=== PATIENT | female | born 1955 | race Caucasian/White ===

== ENCOUNTER 2016-09-05 08:54 | Day surgery (SDC) | payer OTHER ==
[2016-09-05] VITALS (12 sets, daily range): BP systolic 126–160; BP diastolic 57–82; PULSE 69–96; RESP 12–28; O2SAT 95–100
[~2016-09-05] VITALS: Ht 175.3 cm; Wt 99.3 kg
--- NOTE | 2016-09-05 06:45 | PCM.HPANE ---
Patient Data Surgeon Admitting Provider: Attending Provider:Ernie Jimenes DPM Primary Care Physician:Keith Mcgill MD Other Provider:Lesley Osorio Anesthesia Reason for Visit Posterior Tibial Tendon Dysfuncion Left Ankle Ht/WT & BMI Height (Feet): 5 Height (Inches): 9 Weight (Kilograms): 98.42 Body Mass Index 32.00 Allergies Coded Allergies: No Known Allergies (Unverified Allergy, Unknown, 05/11/16) Past Anesthesia History Anesthesia History: Denies:: Abnormal Airway, Anesthesia Reactions, Difficult Intubation, Fam Anesthesia Reaction, Fam Malignant Hypertherm, Malignant Hyperthermia Diabetes History Hx Diabetes?: No MRSA MRSA: No Medications Blood Thinner: Aspirin Hypertension Medication: No Home Meds Incl Beta Anthony: No Reported Medications Zinc Gluconate (Zinc)50 Mg [id number] Mg PO DAILY 09/02/16 Ascorbic Acid (Vitamin C)1,000 Mg Tab.chew1,000 Mg PO DAILY Ref 0 09/02/16 Calcium Carbonate/Vitamin D3 (Calcium 600 + Vit D Tablet)1 Each Tablet1 Each PO DAILY 09/02/16 Turmeric Root Extract (Turmeric)500 Mg Capsule1,000 Mg PO DAILY 09/02/16 Cholecalciferol (Vitamin D3) (Vitamin D3)2,000 Unit Tablet2,000 Unit PO DAILY 09/02/16 Fish Oil/Borage/Flax/Om3,6,9#1 (Triple Carmi Complex 3-6-9)400 Mg [id number] Mg PO DAILY 09/02/16 Cyanocobalamin (Vitamin B12)500 Mcg Tablet1,000 Mcg PO DAILY 09/02/16 Magnesium Oxide 400 Mg [id number] Mg PO DAILY 09/02/16 Vitamin E Mixed (Vitamin E)400 Unit [id number] Unit PO DAILY 09/02/16 Aspirin 81 Mg [id number] Mg PO DAILY Ref 0 09/02/16 Discontinued Reported Medications No Historical Medication Ea 07/21/13 History History of ENT Problems?: No HEENT History: Denies:: Abnormal Airway Cataracts Difficult Intubation Dysphagia Glaucoma Hearing Problem Sinus Problem TMJ Hx of Heart Problems?: No Cardiovascular History: Denies:: AICD Congestive Heart Failure Edema Heart Murmur Hypertension Irregular Heartbeat Pacemaker Peripheral Vascular Hx of Respiratory Problem?: No Respiratory History: Denies:: Asthma COPD Dyspnea Emphysema Oxygen Administration Pneumonia Tuberculosis Use of C-PAP Machine Use of Inhalers / NEBS Hx Neurologic Problems?: No Neurological History: Denies:: CVA Dementia Dizziness Headaches Multiple Sclerosis Parkinson's Disease Seizures TIA Hx of GI Problems?: No Gastrointestinal History: Denies:: Gall Bladder Disease Gastroesphageal Reflux Gastrointestinal Bleeding Heartburn Hepatitis Hiatal Hernia Liver Disease Hx of Problems?: No Genitourinary History: Denies:: Kidney Stones Urinary Tract Infection HX of Peritoneal Dialysis: No Female Hx: Positive for:: Problems with Breasts? (hx of lump, resolved) Denies:: Currently (post menopausal) Skin History: Denies:: History Skin Disorders? Pressure Ulcers Hx Musculoskeletal Problems?: Yes Musculoskeletal History: Positive for:: Musculoskeletal Trauma (left ankle current admission problem) Osteoarthritis Denies:: Fibromyalgia Joint Replacement Hx of Psycho/Social Problems?: No Psycho Social History: Denies:: Anxiety Hx Depression Hx Surgeries?: Yes (L THUMB TRAUMA) Hx Any Other Health Problems?: Yes Other History: Denies:: Cancer Thyroid Disease History Blood Transfusions: Positive for:: Accept Blood Products? Denies:: Blood Transfusions Hx Diabetes: No Hx Alcohol Use: NoHx Substance Use: No Smoking Status: Never Smoker Have You Smoked inLast 12 mo: No Stop/Bang S-Snoring: Do You Snore Loudly: No T-Tired: feel tired, fatigued: No O-Obsered: Observed not breath: No P-Blood Pressure: treated: No B- Body Mass Index > 35 kg/m2: No A- Age over 50: Yes N- Neck Large Circumference: No G- Gender Male: No KAM Total Score: 1 KAM Risk Assessment: Low Risk, <3 Yes Risk Assessment Category Category 1A: Patient has history of documented sleep apnea, and HAS NOT received any narcotic, sedative or anesthesia administration during this stay. Category 1B: Patient has history of documented sleep apnea, and HAS received any narcotic , sedative or anesthesia administration during this stay Category 2: Patient has SUSPECTED Obstructive Sleep Apnea, and HAS received any narcotic , sedative or anesthesia administration during this stay. Category 3: Patient has SUSPECTED Obstructive Sleep Apnea and HAS NOT received narcotic, sedative or anesthesia administration during this stay. Category 4: Outpatient in Procedural Areas with known sleep apnea or who screen positive for High Risk via the STOP/BANG questionnaire. Exam Exam General Appearance: Alert, Oriented X3, Cooperative, No Acute Distress HEENT/AIRWAY: MP 2 Lungs: Clear to Auscultation, Normal Air Movement Heart: Exam Unremarkable, Regular Rate/Rhythm, No Murmurs/Rubs/Gallops Plan Impression Patient chart reviewed, patient interviewed and anesthestic plan with risks, benefits, and alternatives discussed, and informed consent obtained. NPO Status: 03/28/13 1500 ASA Physical Status: ASA2 Mod Systemic Disease Anesthetic Plan: GA, Regional Block Bene/Risks/Altern/Consents: Yes HP Complete Prior to Induction: Yes Cheyenne Olmstead MD Sep 05, 2016 06:45
[~2016-09-05 08:54] MED LIST: ASCO100089 PO; ASPI-973 PO; CALC-243 PO; CHOL200025 PO; CYAN500 PO; CeFAZolin Inj 2 GM in IV Premix 1 EACH IV ONE; FISH400C2 PO; Lactated Ringer's 1,000 ML IV SCH; MAGN400T4 PO; TURM500C3 PO; VITA400T9 PO; ZINC50TA4 PO
[2016-09-05] MEDS ORDERED: Propofol 10,000 mCg/mL 20 mL Inj ONE (08:55)
[2016-09-05] MEDS ORDERED: Ondansetron 2 mg/mL 2 mL Inj ONE (08:55)
[2016-09-05] MEDS ORDERED: Dexamethasone 4 mg/mL Inj ONE (08:55)
[2016-09-05] MEDS ORDERED: fentaNYL-PF 50 mCg/mL 2 mL Inj ONE (08:55)
[2016-09-05] MEDS ORDERED: Lactated Ringer's 1,000 ML IV ONE ×2 (09:30→12:10)
[2016-09-05] MEDS ORDERED: Lactated Ringer's 1,000 ML IV SCH (12:02)
[2016-09-05] MEDS ORDERED: Lactated Ringer's 500 ML IV PRN (12:02)
[2016-09-05] MEDS ORDERED: MetoCLOpramide 5 mg/mL 2 mL Inj IVPUSH PRN (12:05)
[2016-09-05] MEDS ORDERED: hydrALAZINE 20 mg/mL Inj IVPUSH PRN (12:05)
[2016-09-05] MEDS ORDERED: Ondansetron 2 mg/mL 2 mL Inj IVPUSH PRN (12:05)
[2016-09-05] MEDS ORDERED: HYDROmorphone 1 mg/mL Inj IVPUSH PRN (12:05)
[2016-09-05] MEDS ORDERED: EPHEDrine Sulfate 50 mg/mL Inj IVPUSH PRN (12:05)
[2016-09-05] MEDS ORDERED: Dexamethasone 4 mg/mL Inj IVPUSH PRN (12:05)
[2016-09-05] MEDS ORDERED: Labetalol 5 mg/mL 4 mL Inj IV PRN (12:05)
[2016-09-05] MEDS ORDERED: fentaNYL-PF 50 mCg/mL 2 mL Inj IVPUSH PRN (12:05)
[2016-09-05] MEDS ORDERED: Phenylephrine 10,000 mCg/mL Inj IVPUSH PRN (12:05)
[2016-09-05] MEDS ORDERED: Atropine 0.4 mg/mL Inj IVPUSH PRN (12:05)
[2016-09-05] MEDS ORDERED: Gentamicin 40 mg/mL 2 mL Inj IRRIGATION ONE (14:36)
--- NOTE | 2016-09-05 16:27 | PCM.ANEP1 ---
Post Anesthesia Phase 1 PACU Phase 1 Assessment Vital Signs Vital Signs Date Time Temp Pulse Resp B/P Pulse Ox O2 Delivery O2 Flow Rate FiO2 09/05/16 16:25 36.5 74 13 135/76 98 Simple Mask 6 09/05/16 09:40 36 76 16 126/57 95 Room Air Anesthetic Administered: GA Level of Alertness: Awake, talking MELGAR's with Equal Strength: Yes Pain: No Nausea or Vomiting: No Oxygen Delivery: Simple Mask Lungs: Clear to Auscultation, Normal Air Movement Cheyenne Olmstead MD Sep 05, 2016 16:27
--- NOTE | 2016-09-05 16:28 | PCM.ANEP2 ---
Post Anesthesia Evaluation ASA/CMS Post Anesthesia VS in Patient's Normal Range?: Yes Resp Stable; Airway Patent?: Yes CV Function & Hydration Stable: Yes Mental Status Recovered?: Yes Pain control Satisfactory?: Yes N/V Control Satisfactory?: Yes Cheyenne Olmstead MD Sep 05, 2016 16:28
--- NOTE | 2016-09-05 16:43 | PCM.PODPO ---
Podiatry Operative Report Date of Service: Sep 05, 2016 Date of Service Sep 05, 2016 Pre Operative Diagnosis Posterior tibial tendon dysfunction left foot Pes planus left foot Osteoarthritis of the left hindfoot Post Operative Diagnosis Same as preoperative diagnoses Procedure Triple arthrodesis left lower extremity Surgeon Surgeon: Ernie Jimenes DPM Assistants: None Indication for Procedure Painful left hindfoot Findings Mild degenerative arthritis of the left posterior facet,talonavicular joint, and calcaneocuboid joint Details of Procedure Patient was identified in the preoperative holding area and all preoperative comorbidities and allergies were identified and thoroughly discussed. The patient was transported into the operating room and placed on the operating room table in the normal supine position. Early catheter was inserted for the duration of the procedure. A pneumatic thigh tourniquet was placed on the left thigh. A preoperative popliteal block was performed by the anesthesia service. The patient was then prepped and draped in the normal aseptic technique. A preoperative timeout was performed. Attention was first paid to the lateral aspect of the left foot. A linear incision approximately 4-1/2 cm in length was made overlying the calcaneocuboid joint extending proximally to an area just distal to the fibular tip. Once the initially her skin to subcutaneous neurovascular structures were identified and retracted out of the surgical field. Blunt dissection was carried down to subcutaneous tissue the extensor digitorum brevis muscle belly was identified and the peroneal tendon sheath was identified along its inferior surface. The peroneal tendons were retracted inferiorly taking care not to damage the tendon sheath. The extensor digitorum muscle belly was reflected distally utilizing a 15 blade exposing the lateral wall of the calcaneus and the calcaneocuboid joint. A dorantes periosteal elevator was utilized to bluntly dissected proximally along the calcaneal wall until the posterior facet of the subtalar joint was clearly visualized. Inspection of the posterior facet revealed mild degenerative arthritic change with mild to moderate loss of articular cartilage. A cannulated distractor was then placed across the posterior facet and utilized to gain clear visualization of the joint space. A large curet and osteotomes were then utilized to remove all remaining articular cartilage. The subchondral plate was then fenestrated utilizing a #2.0 drill ensuring that all surfaces of both the calcaneal and talar side of the posterior facet revealed healthy bleeding subchondral bone. The cannulated distractor was then removed. Attention was then paid back to the calcaneocuboid joint where all remaining articular cartilage was again resected utilizing an osteotome and large curet. A 2.0 mm drill bit was utilized to fenestrate all portions of the subchondral plate ensuring healthy bleeding bone was directly visible on both the calcaneal and cuboid sides of the calcaneocuboid joint. Attention was then paid to the medial aspect of the left foot talonavicular joint. A 6 cm incision was made overlying the dorsal medial aspect of the talar neck extending to the navicular cuneiform joint. Once initially her skin no subcutaneous neurovascular structures including the medial marginal vein were identified and retracted out of the surgical field with the venous structures being retracted laterally. Blunt dissection was carried down with a Metzenbaum scissor to identify deep fascia. The tibialis anterior tendon was also identified in the distal portion of this incision and retracted out of the surgical field. Sharp dissection was carried down through deep fascia exposing the talonavicular joint. Care was taken to reflect a portion of the posterior tibial tendon from the navicular tuberosity as there was a large prominent portion of the navicular plantarly which was resected with an osteotome and rongeur. A cannulated distractor was then placed across the talonavicular joint and distraction was performed to achieve direct visualization of the articular surface. Mild arthritic degeneration was noted with moderate loss of articular cartilage. The remaining articular cartilage was removed with a curet and osteotome. The joint space surfaces were then fenestrated utilizing a 2.0 mm drill bit exposing healthy bleeding underlying bone. The cannulated distractor was then removed prior to any placement of internal fixation. Intraoperative C-arm x-ray was then utilized to verify placement of a 2.0 mm guide pin across the posterior facet of the subtalar joint. The posterior facet was placed into neutral position as the guidepin was placed. A 7.0 mm cannulated screw was then inserted in the normal surgical technique which was partially threaded providing significant compression of the posterior facet. Intraoperative C-arm x-ray was utilized to verify positioning of the screw. Direct visualization of the posterior facet revealed optimal compression and apposition of the posterior facet. Attention was then paid to the talonavicular joint. A guidepin was placed across the talonavicular joint utilizing intraoperative C-arm x-ray for guidance and 2 4.0 mm partially threaded screws were inserted utilizing normal surgical technique. Placement of the screws was verified utilizing intraoperative C-arm x-ray direct visualization of the talonavicular joint revealed optimal compression. Prior to placement of the screw across the talonavicular joint the forefoot was reduced to remove any previous midfoot abduction. Attention was then paid to the calcaneocuboid joint. A guidepin was placed from proximal superior to distal inferior across the calcaneocuboid joint and a 3.5 mm partially threaded cannulated screw was inserted in the normal surgical technique with optimal compression noted across the joint space. X-ray was used to verify optimal positioning of the internal fixation and optimal positioning of the foot following fixation. All wounds were then copiously flushed with large amounts of normal saline. Deep closure of all wounds was performed utilizing number 2. 0 Vicryl subcutaneous closure was performed utilizing 3. 0 Vicryl and skin closure was performed utilizing 3. 0 Prolene. No complications occurred during this procedure. This patient was placed into a dressing consisting of Adaptic sterile 4 x 4 gauze Kerlix and a mildly compressive Ambrosio compression dressing with a posterior splint. The patient was awoken by anesthesia and transported out of the operating room. Grafts, Implants: Implants-See Implant Record Complications There were no periprocedural complications identified. Condition Stable Anesthetic Administered: GA Catheters: None Output, Estimated Blood Loss: 100 Blood Admin during surgery: No Surgical Cast or Splint: Post-op Boot Surgical Specimen Removed: No Specimen sent to Pathology: No Post Operative Plan Ice and elevate left lower extremity Nonweightbearing with 4 extremity Advance diet as tolerated Keep dressing clean dry and intact Discharge to home when stable Contact office with any questions or concerns regarding care Ernie Jimenes DPM Sep 05, 2016 16:42
[2016-09-05] MEDS ORDERED: hydrOXYzine Inj 25 MG/1 mL SDV IM ONE ×3 (17:17→19:32)
[2016-09-05] MEDS ORDERED: EPHEDrine Sulfate 50 mg/mL Inj ONE (17:18)
[2016-09-05] MEDS ORDERED: EPHEDrine Sulfate 50 mg/mL Inj IM ONE (17:20)
== END 2016-09-05 23:59 | disposition home or self-care (01) ==
LOC: SAS 08:54
PROVIDERS: ATTEND Podiatrist Foot & Ankle Surgery
DX: M21.42 Flat foot [pes planus] (acquired), left foot (principal); M19.072 Primary osteoarthritis, left ankle and foot; Z79.82 Long term (current) use of aspirin
CPT/HCPCS: 28715; 76001; 76942; C1713; J0690; J1100; J1580; J2250; J2405; J2765; J3010; J3410; J7120